=== PATIENT | female | born 1965 | race Caucasian/White ===

== ENCOUNTER 2018-01-20 03:16 | Day surgery (SDC) | payer BC ==
[2018-01-18 11:01] VITALS: BP 109/60
[~2018-01-20] VITALS: Ht 162.6 cm; Wt 55.4 kg
[2018-01-20] VITALS (10 sets, daily range): BP systolic 82–114; BP diastolic 43–64
[~2018-01-20 03:16] MED LIST: ACET500T73 PO; AMIO200T2 PO; AMOX1TAB63 PO; CARV6.25 PO; ENOX30DI SQ; FENT50AM IV; FURO-81 PO; LACTATED RINGERS 1,000 ML IV SCH; LORA-447 PO; METH125V12 IV; ONDA2VIA2 IV; PANT40TA3 PO; PANT40VI IV; POTA10TA10 PO; PRED20TA PO; SACU1TAB4 PO; SACU1TAB7 PO; WARF3TAB7 PO
[2018-01-20] MEDS ORDERED: NS 100ML 100 ML IV ONE ×2 (05:29→09:30)
[2018-01-20] MEDS ORDERED: MEFOXIN ONE ×2 (05:29→09:30)
[2018-01-20] MEDS ORDERED: LACTATED RINGERS 1,000 ML ONE (05:29)
[2018-01-20] MEDS ORDERED: VERSED ONE (06:43)
[2018-01-20] MEDS ORDERED: SUBLIMAZE ONE ×2 (06:43→09:12)
[2018-01-20] MEDS ORDERED: DIPRIVAN IV ONE (06:43)
--- NOTE | 2018-01-20 07:27 | PCM.EKG ---
[facility] Test Date: 2018-01-20 Test Time: 07:28:17 Pat Name: ALICE BARRIGA Department: Room: Gender: F Cranberry Sorter: KINZA : 1965 Requested By: LARRY TSANG Order Number: [id number] Reading MD: Measurements Intervals [place] Rate: 67 P: 70 ID: [id number] QRS: 100 QRSD: 144 T: 17 QT: 528 QTc: 557 Interpretive Statements Electronic ventricular pacemaker No previous ECG available for comparison Please click the below link to view image of tracing.
[2018-01-20] MEDS: SUBLIMAZE IV PRN ×2 (09:16→09:22)
[2018-01-20] MEDS ORDERED: NS 500ML 500 ML IV SCH (09:30)
[2018-01-20] MEDS ORDERED: LACTATED RINGERS 1,000 ML IV SCH (09:30)
[2018-01-20] MEDS ORDERED: NORCO 7.5MG PO ONE ×2 (09:55→10:00)
[2018-01-20] MEDS ORDERED: MEFOXIN IV SCH (10:05)
--- NOTE | 2018-01-20 10:59 | OPH ---
DATE OF SURGERY: PREOPERATIVE DIAGNOSES: History of abdominal pain and dyspepsia symptoms with vomiting. POSTOPERATIVE DIAGNOSES: 1. Gastritis. 2. Small hiatal hernia. SURGEON: Chau Goyal DO BOTTLE BLOWER: OR staff. ANESTHESIA: Total intravenous anesthesia by Damir Norris CRNA. PROCEDURES PERFORMED: Esophagogastroduodenoscopy with biopsy. SPECIMENS: Gastric mucosa to path. ESTIMATED BLOOD LOSS: 4 mL. COUNTS: At the completion of the case, the counts were correct per OR staff. DESCRIPTION OF PROCEDURE: The patient is a 52-year-old female known from previous evaluation. Prior to procedure, informed consent was obtained. At time of procedure, she was taken to the operative suite and placed in supine position. After time-out was completed, once her preop antibiotic is appropriately dosed, she was repositioned in left lateral recumbent position. After adequate sedation, esophagogastroduodenoscope was advanced transorally with pneumoinsufflation distally in second portion of duodenum. Once the duodenum was adequately visualized, camera was slowly withdrawn to facilitate visualization of the duodenal bulb and the pylorus. Her distal stomach does show some gastritis and biopsies are obtained. The retroflexion maneuver was performed. Cardia shows a small sliding type hiatal hernia. Camera was reduced. The fundus had been noted to be grossly normal. After the camera was reduced, stomach was decompressed. With good hemostasis noted, the camera was slowly withdrawn. Distal, mid and proximal esophagus were within normal limits. Vocal cords were visualized and within normal limits. Camera was removed. Procedure was discontinued. The patient tolerated these procedures well and there were no acute complications noted. Chau Goyal DO DR: HARMONY/gopal JOB# [id number] CC: Meera Roman MD
== END 2018-01-20 10:50 | disposition home or self-care (01) ==
LOC: SDC 03:16 → GIL 03:16
PROVIDERS: ATTEND Surgery
DX: K29.50 Unspecified chronic gastritis without bleeding (principal); I34.0 Nonrheumatic mitral (valve) insufficiency; I50.22 Chronic systolic (congestive) heart failure; I42.9 Cardiomyopathy, unspecified; I47.2 Ventricular tachycardia; I48.0 Paroxysmal atrial fibrillation; I31.9 Disease of pericardium, unspecified; I49.3 Ventricular premature depolarization; I05.9 Rheumatic mitral valve disease, unspecified; M19.032 Primary osteoarthritis, left wrist; K29.00 Acute gastritis without bleeding; B96.81 Helicobacter pylori [H. pylori] as the cause of diseases classified elsewhere; Z95.2 Presence of prosthetic heart valve; Z79.899 Other long term (current) drug therapy; Z90.710 Acquired absence of both cervix and uterus; Z98.890 Other specified postprocedural states; Z88.8 Allergy status to other drugs, medicaments and biological substances; Z79.01 Long term (current) use of anticoagulants; Z95.0 Presence of cardiac pacemaker; Z86.79 Personal history of other diseases of the circulatory system; Z80.3 Family history of malignant neoplasm of breast; Z82.49 Family history of ischemic heart disease and other diseases of the circulatory system
CPT/HCPCS: 43239; 88305; 88342; 93005; J2250; J3010 ×2; J3490; J7050 ×2; J7120; J0694

== ENCOUNTER → 2018-01-27 | Outpatient (CLI) | payer BC ==
[~2018-01-27] MED LIST changes: -LACTATED RINGERS 1,000 ML IV SCH
--- NOTE | 2018-01-27 13:12 | DIREP ---
PROCEDURE:NM GALLBLADDER SCAN/COLVIN COMPARISON:None. INDICATIONS:BILARY DYSCLINESIS TECHNIQUE:After obtaining the patient's consent, radiopharmaceutical was injected and images obtained sequentially for one hour. PHARMACEUTICAL(S):5.8 mCi Tc-99m ÁNGELA derivative, IV. 8 OZ Ensure Plus, PO FINDINGS: LIVER:Normal. BILIARY DUCTS:Normal. Visualized at 5 minutes. GALLBLADDER:Normal. Visualized at 55 minutes INTESTINE:Normal. Visualized at 20 minutes EJECTION FRACTION:Ejection fraction is calculated between 0.5 minutes and 59.5 minutes is 40%. There is initial accumulation of agent within the gallbladder until approximately 44 minutes and subsequent contraction with a resultant good ejection fraction. Normal ejection fraction is greater than 35%. CONCLUSION: Normal hepatobiliary study with normal gallbladder ejection fraction of 40%. Dictated by: Rogelio Canales MD on 01/27/2018 at 12:57 PM
== END | disposition home or self-care (01) ==
LOC: NM 09:02
PROVIDERS: ATTEND Specialist
DX: K83.8 Other specified diseases of biliary tract (principal)
CPT/HCPCS: 78227; A9537

== ENCOUNTER → 2018-03-07 | Outpatient (CLI) | payer BC ==
[2018-03-07 10:14] LABS: BILIRUBIN,URINE NEGATIVE (NEGATIVE); UROBILINOGEN,URINE NORMAL (NEGATIVE)
[2018-03-07 10:27] LABS: APPEARANCE,URINE CLOUDY (CLEAR); UA COLOR YELLOW (YELLOW)
== END | disposition home or self-care (01) ==
LOC: NPLAB 10:02
PROVIDERS: ATTEND Specialist
DX: N39.0 Urinary tract infection, site not specified (principal)
CPT/HCPCS: 81000; 87086

== ENCOUNTER → 2018-03-08 | Outpatient (CLI) | payer BC ==
[2018-03-08 10:05] LABS: HEMOGLOBIN 13.4 g/dL (12.0-15.0); MEAN CELL HGB 28.2 pg (26-34); MEAN CELL HGB CONCENTRATION 32.7 g/dL (33-37); MEAN CORP VOLUME 86.3 fL (78-100); MEAN PLATELET VOLUME 11.7 fL (7.8-11.0); RED CELL DISTRIBUTION WIDTH 14.6 % (11.5-14.5); WHITE BLOOD CELL 5.2 10^3/uL (4.5-11.0)
== END | disposition home or self-care (01) ==
LOC: LAB 09:52
PROVIDERS: ATTEND Specialist
DX: N39.0 Urinary tract infection, site not specified (principal)
CPT/HCPCS: 36415; 85027

== ENCOUNTER → 2018-05-31 | Outpatient (CLI) | payer BC ==
[~2018-05-31] MED LIST changes: +WARF3TAB52 PO; -WARF3TAB7 PO
== END | disposition home or self-care (01) ==
LOC: LAB 12:36
PROVIDERS: ATTEND Specialist
DX: E87.6 Hypokalemia (principal); I50.22 Chronic systolic (congestive) heart failure
CPT/HCPCS: 36415; 83735

== ENCOUNTER → 2018-06-03 | Outpatient (CLI) | payer BC ==
[2018-06-03 11:21] LABS: CALCIUM 8.5 mg/dL (8.4-10.5); CARBON DIOXIDE 23.8 mmol/L (20.0-32)
== END | disposition home or self-care (01) ==
LOC: LAB 10:53
PROVIDERS: ATTEND Specialist
DX: R79.89 Other specified abnormal findings of blood chemistry (principal)
CPT/HCPCS: 36415; 80048

== ENCOUNTER → 2018-06-28 | Outpatient (CLI) | payer BC ==
--- NOTE | 2018-06-28 15:27 | PCM.EKG ---
[facility] Test Date: 2018-06-28 Test Time: 15:31:17 Pat Name: ALICE BARRIGA Department: Room: Gender: F Material Crew Supervisor: NEYMAR : 1965 Requested By: LARRY TSANG Order Number: [id number] Reading MD: Measurements Intervals [place] Rate: 72 P: 45 TN: 216 QRS: 106 QRSD: 152 T: 36 QT: 508 QTc: 556 Interpretive Statements Electronic ventricular pacemaker Compared to ECG 01/20/2018 07:28:17 No significant changes Please click the below link to view image of tracing.
[2018-06-28 15:56] LABS: HEMOGLOBIN 10.2 g/dL (12.0-15.0); MEAN CELL HGB 28.2 pg (26-34); MEAN CELL HGB CONCENTRATION 32.6 g/dL (33-37); MEAN CORP VOLUME 86.5 fL (78-100); MEAN PLATELET VOLUME 10.6 fL (7.8-11.0); RED CELL DISTRIBUTION WIDTH 15.5 % (11.5-14.5); WHITE BLOOD CELL 4.5 10^3/uL (4.5-11.0)
[2018-06-28 15:59] LABS: ABG PCO2 29.6 mmHg (35.0-45.0); ABG PH 7.503 (7.350-7.450); BE(B) 0.3 mmol/L (-2.0-2.0); HCO3act 22.7 mmol/L (22.0-26.0); pO2 87.4 mmHg (75.0-100.0)
[2018-06-28 16:19] LABS: CALCIUM 8.6 mg/dL (8.4-10.5); CARBON DIOXIDE 27.5 mmol/L (20.0-32)
--- NOTE | 2018-06-28 16:30 | DIREP ---
PROCEDURE:CHEST 2 VIEWS COMPARISON:[facility], CR, XRAY CHEST 2 VWS, 07/19/2017, 07:40 AM. INDICATIONS:I50.22 Chronic systolic (congestive) heart failure FINDINGS: LUNGS/PLEURA:No significant pulmonary parenchymal abnormalities. No effusions. VASCULATURE:Normal. Unremarkable pulmonary vasculature. CARDIAC:Mild cardiomegaly. Post CABG changes with median sternotomy wires. Valvular replacement noted. MEDIASTINUM:Normal. No visible mass or adenopathy. BONES:Normal. No fracture or visible bony lesion. OTHER:Left subclavian pacer seen. CONCLUSION:Interval postsurgical changes. No acute cardiopulmonary disease. Dictated by: Jose Wilks M.D. on 06/28/2018 at 04:27 PM
--- NOTE | 2018-07-14 20:01 | ECHO ---
DATE OF SERVICE: 06/28/2018 A 52-year-old female. PRIMARY PHYSICIAN: Dr. Roman. FINDINGS: Shortness of breath, prosthetic mitral valve for bacterial endocarditis, assess valvular dysfunction and LV function, history of chronic systolic heart failure with 40% ejection fraction. Mitral valve shows a mitral prosthetic valve and there is a suggestion of an echogenic shadow on the prosthesis. It is not very clear and could be a possibility of thrombus versus vegetation. It is seen in 4 chamber view. MUNA would be important. There is no evidence of any mitral regurgitation noted. There may be very trivial mitral regurgitation, increased echogenicity, difficult results and difficulty in assessing the integrity of the mitral valve, but since there is no mitral regurgitation, very likely the valve is still intact, but thrombus versus vegetation cannot be fully excluded. Aorta is normal. There is aortic regurgitation with a pressure half time of 335 milliseconds consistent with 2+ aortic regurgitation, normal aortic size, mild gradient across the aorta, adequate aortic valve opening of 2.75 cm and there is a echogenic shadow on the aortic leaflet moving in a paradoxical manner. Vegetation of the aortic valve seems a distinct possibility and it is attached very likely to the anterior leaflet. No flail leaflet is documented. Tricuspid valve shows tricuspid regurgitation with velocity of 2.5 meters with a right ventricular systolic pressure of 35 mm. Right ventricular enlargement at 3.97 cm. Right atrium is enlarged in 4 chamber view to 5.2 cm. Left atrium appears to be normal. Left ventricle is normal in size, around 5.35 cm end-diastolic dimension, 3.6 cm end systolic dimension. No left ventricular hypertrophy, good wall contractility. Ejection fraction is 45%, improved from a year ago when she had mitral prosthesis with an ejection fraction in the mid 20% range. No pericardial effusion is documented. Hence picture consistent with mild LV systolic dysfunction, poor quality images on 4-chamber with probably intact integrity of the mitral valve with suggestion of vegetation. MUNA advisable. Aortic vegetation is a consideration, some sclerosis of the aorta. New finding of aortic regurgitation with a pressure half time of 335 milliseconds. Mild tricuspid regurgitation, mild pulmonary hypertension with a right ventricular systolic pressure of 35 mm and right ventricular enlargement, right atrial enlargement. Normal LV size, global hypokinesis, 45% ejection fraction, no pericardial effusion documented. Laxmichand Kamnani, MD DR: SUNNY/gopal JOB# [id number]
== END | disposition home or self-care (01) ==
LOC: LAB 15:17
PROVIDERS: ATTEND Specialist
DX: I50.22 Chronic systolic (congestive) heart failure (principal); I51.7 Cardiomegaly; Z95.1 Presence of aortocoronary bypass graft
CPT/HCPCS: 36415; 36600; 71046; 80053; 82803; 83880; 85027; 85610; 85651; 87040; 87077; 87186; 93005; 93307

== ENCOUNTER 2018-06-29 14:54 | Inpatient (IN) | payer BC ==
[2018-06-29] VITALS (14 sets, daily range): BP systolic 95–119; BP diastolic 46–68
[~2018-06-29] VITALS: Ht 162.6 cm; Wt 55.6 kg
--- NOTE | 2018-06-29 15:47 | NUR ---
PATIENT ARRIVED TO ICU AMBULATORY. PATIENT CHANGED INTO GOWN. HOOKED UP TO BEDSIDE MONITOR. VSS. INSERTED 20G IV TO RIGHT FA SECURED WITH TAPE AND TEGADERM DRESSING. ADMISSION ASSESSMENT COMPLETED. NOTIFIED DR. MCGOWAN OF ARRIVAL TO ICU. STATES HE IS ON THE WAY. BED IN LOW LOCKED POSITION. CALL LIGHT IN REACH. SIDE RAILS UP X2.
--- NOTE | 2018-06-29 16:00 | NUR ---
DR. MCGOWAN AT BEDSIDE ASSESSING PATIENT. NEW ORDERS RECEIVED TO TRANSFER TO [facility] [place] PATIENT REQUESTS TO BE TRANSFERRED BY PRIVATE VEHICLE. ORDERS RECEIVED TO GIVE PATIENT THE ANTIBIOTICS THAT ARE ORDERED AND DISCHARGE PATIENT WITH MEDICAL RECORDS.
--- NOTE | 2018-06-29 16:13 | NUR ---
SPOKE TO AGUSTINA FROM [facility] ACCEPTED PHYSICIAN WILL BE DR. GRANT.
--- NOTE | 2018-06-29 16:29 | NUR ---
AGUSTINA [facility] ON TELEPHONE ROOM NUMBER CONFIRMED [id number] NOTIFIED THAT PATIENT WILL BE RECEIVING ANTIBIOTICS AND THEN PATIENT IS GOING BY PRIVATE VEHICLE.
[2018-06-29] MEDS ORDERED: NS IV SCH ×2 (16:30)
[2018-06-29] MEDS ORDERED: VANCOMYCIN IV SCH (16:30)
[2018-06-29] MEDS ORDERED: TYLENOL PO PRN (16:30)
[2018-06-29] MEDS ORDERED: RIFAMPIN PO SCH (16:30)
[2018-06-29] MEDS ORDERED: GENTAMICIN SULFATE IV SCH (16:30)
--- NOTE | 2018-06-29 17:17 | HPH ---
ADMIT DATE: 06/29/2018 PRIMARY CARE PHYSICIAN: Meera Roman MD The patient is being admitted as an inpatient to ICU. 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 CHIEF COMPLAINT: Fever and shortness of breath and chills. HISTORY OF PRESENT ILLNESS: The patient is a 52-year-old female who a week ago started to have fever and chills. She denied any respiratory symptoms at this time. No procedures done recently. No sick contacts. She just did not feel well. She was having increasing shortness of breath as well throughout this. She was given Lasix, which she responded very well too and lab work was done. She continues to have fevers on and off and has some chills throughout the week and labs were done yesterday. She had positive blood cultures. She does have a history of mitral valve replacement for endocarditis 11 months ago and workup was done and it was felt that she had a prosthetic valve infection at this point. So, I was asked to admit her and to start prompt IV antibiotics on her and then sent her to a CT surgeon. PAST MEDICAL HISTORY: She had infective endocarditis in July 2017 and underwent a mitral valve replacement. SOCIAL HISTORY: She does not smoke. No illicit drugs, no alcohol. ALLERGIES: DEMEROL and MORPHINE. FAMILY HISTORY: Asked and noncontributory for this admission. MEDICATIONS: She is on include Coumadin, tramadol, Coreg. She was on Lasix, amiodarone, Protonix, Zofran. PHYSICAL EXAMINATION: GENERAL: She is in no acute distress. Awake, alert, oriented x 4. HEENT: Oropharynx is clear. NECK: Supple. HEART: I did hear a mitral valve murmur on her. LUNGS: Relatively clear bilaterally. ABDOMEN: Good bowel sounds, soft abdomen. EXTREMITIES: No pitting edema. I did not see any ulcers nodes. No Janeway spots. No splinter hemorrhages at this point. LABORATORY DATA: Labs were drawn. Her white count was 4500 yesterday, hemoglobin 10.2, platelet count of 140. Chemistry panel showed a sodium of 134, potassium 3.0, BUN 12, creatinine 0.88, albumin of 3. LFTs looked okay. Blood cultures were done that showed all bottles were positive for gram-positive cocci in singles pairs and chains. Chest x-ray was clear yesterday. ProBNP was elevated. 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 I have started her on vancomycin 50 mg/kg, rifampin 600 mg and gentamicin 1 mg/kg at starting dose on her in ICU. She was short of breath and had just received Lasix to improve her pulmonary edema, so I will not give her a 30 mL/kg bolus of fluids at this time since her valve is presumed affected and that is compromising her heart function, but I have talked to Dr. Figueroa from the [facility] and explained to him the situation and he has graciously accepted the transfer over to the [facility] in [place], so that he can evaluate her. We are giving her the IV antibiotics currently. Marianna Dennis MD DR: LILIAM/gopal JOB# [id number]
--- NOTE | 2018-06-29 18:44 | NUR ---
REPORTED OFF TO ONCOMING SHIFT. RELINQUISHED CARE.
[2018-06-29] MEDS ORDERED: COREG ONE (19:19)
[2018-06-29] MEDS ORDERED: ENTRESTO 49 MG-51 MG TABLET PO ONE ×2 (19:19→19:27)
[2018-06-29] MEDS ORDERED: ENTRESTO 24 MG-26 MG TABLET PO ONE (19:20)
[2018-06-29] MEDS ORDERED: ENTRESTO 49 MG-51 MG TABLET PO SCH (19:30)
[2018-06-29] MEDS ORDERED: COREG PO SCH (19:30)
--- NOTE | 2018-06-29 19:35 | NUR ---
SBAR REPORT CALLED TO THE [facility] TO MEDHAT JEFFRIES.
--- NOTE | 2018-06-29 19:45 | NUR ---
PATIENT TRANSFERRED TO [facility] VIA POV WITH SPOUSE. IV SALINE LOCKED. PATIENT ESCORTED OUT OF BUILDING. TRANSFER PACKET WITH CHART AND DISKS IN PT POSSESSION. DENIES QUESTIONS OR FURTHER NEEDS.
--- NOTE | 2018-06-30 01:06 | DSH ---
DATE OF DISCHARGE: 06/29/2018 DATE OF TRANSFER: [place] [facility] [place]. 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 HOSPITAL COURSE: The patient is a 52-year-old female who came in with a week long history of fever and chills, 4/4 bottles were positive for gram-positive cocci in chains and pairs and she does have an elevated sed rate with mitral valve murmur. I have started her on vancomycin, rifampin and gentamicin and Dr. Figueroa, the CT surgeon at the [facility], has graciously accepted the transfer, so that he can evaluate her prosthetic valve, so she is getting the IV antibiotics currently and she will be transferred over to the [facility] [place]. Figueroa. Marianna Dennis MD DR: LILIAM/gopal JOB# [id number]
== END 2018-06-29 19:45 | disposition short-term general hospital (02) | DRG 314 ==
LOC: ICU 15:40
PROVIDERS: ADMIT Pediatrics; ATTEND Pediatrics
DX: T82.6XXA Infection and inflammatory reaction due to cardiac valve prosthesis, initial encounter (principal); A41.9 Sepsis, unspecified organism; I50.21 Acute systolic (congestive) heart failure; I33.0 Acute and subacute infective endocarditis; I34.0 Nonrheumatic mitral (valve) insufficiency; Y83.1 Surgical operation with implant of artificial internal device as the cause of abnormal reaction of the patient, or of later complication, without mention of misadventure at the time of the procedure; Z88.5 Allergy status to narcotic agent; Y92.89 Other specified places as the place of occurrence of the external cause
CPT/HCPCS: J1580; J7050; J3370

== ENCOUNTER 2018-08-08 15:31 | Inpatient (IN) | payer BC ==
[~2018-08-08] VITALS: Ht 162.6 cm; Wt 47.7 kg
[2018-08-08] VITALS (24 sets, daily range): BP systolic 113–148; BP diastolic 64–97
[~2018-08-08 15:31] MED LIST changes: -AMIO200T2 PO; +AMIO200T4 PO
[2018-08-08] MEDS ORDERED: DOBUTREX IV ONE (16:13)
[2018-08-08] MEDS ORDERED: D5W IV ONE (16:13)
[2018-08-08 16:15] LABS: ABG PH 7.447 (7.350-7.450); HCO3act 17.5 mmol/L (22.0-26.0); pO2 81.6 mmHg (75.0-100.0)
[2018-08-08] MEDS ORDERED: LANOXIN IV STA (16:16)
[2018-08-08] MEDS ORDERED: LASIX IV STA (16:16)
[2018-08-08] MEDS ORDERED: ATIVAN PO STA (16:16)
--- NOTE | 2018-08-08 16:20 | NUR ---
PT ARRIVED ON UNIT DIRECT ADMIT FROM DR TSANG OFFICE. PT IN NO APPARENT DISTRESS THOUGH BREATHING SOMEWHAT LABORED. DENIED PAIN AT THIS TIME. PICC LINE IN LUE. DR TSANG ORDERS WITH PT.
[2018-08-08] MEDS: ROCEPHIN 2,000 MG in NS 100ML 100 ML IV SCH (16:30)
[2018-08-08] MEDS ORDERED: COUMADIN PO ONE (16:30)
--- NOTE | 2018-08-08 16:53 | DIREP ---
PROCEDURE:CHEST 2 VIEWS COMPARISON:[facility], CR, XRAY CHEST 2 VWS, 06/28/2018, 03:59 PM. INDICATIONS:chf FINDINGS: LUNGS/PLEURA:Small bilateral pleural effusions, right greater than left, and bibasilar atelectasis. CARDIAC:Mild cardiomegaly, previous mitral and interval aortic valvuloplasty, right subclavian pacer, epicardial lead, and mildly prominent pulmonary vascularity. MEDIASTINUM:Suprasternal surgical clips. BONES:Normal OTHER:No additional findings. CONCLUSION:CHF or volume overload. Dictated by: Charlette Quinn MD on 08/08/2018 at 04:46 PM
--- NOTE | 2018-08-08 17:00 | NUR ---
DOBUTAMINE 250 MG/250 ML INFUSING VIA LUE PICC AT 10 CC/HR PER DR SHARAN PITTS.
[2018-08-08] MEDS ORDERED: ROCEPHIN ONE (17:08)
[2018-08-08] MEDS ORDERED: NS 100ML 100 ML IV ONE (17:09)
--- NOTE | 2018-08-08 17:30 | NUR ---
ROCEPHIN 2 GM IV INFUSING VIA 22 GAUGE IV IN R HAND PER DR TSANG ORDER.
--- NOTE | 2018-08-08 17:58 | NUR ---
PT RECEIVED HOME ANTIBIOTICS PER DR TSANG ORDER UNISYN 3 GM/100 ML IV VIA 22 GAUGE IV IN R HAND.
[2018-08-08] MEDS ORDERED: COUMADIN ONE (18:07)
--- NOTE | 2018-08-08 19:00 | NUR ---
REPORT TO 7 PM SHIFT PT IN NO APPARENT DISTRESS, CALL LIGHT IN REACH.
[2018-08-08] MEDS ORDERED: SUBLIMAZE ONE (20:42)
[2018-08-08] MEDS: SUBLIMAZE IV PRN (20:50)
[2018-08-08] MEDS: ENTRESTO 24 MG-26 MG TABLET PO SCH (20:57)
[2018-08-08] MEDS: COREG PO SCH (20:58)
[2018-08-09] VITALS (44 sets, daily range): BP systolic 71–147; BP diastolic 50–98
[2018-08-09] MEDS ORDERED: NS IV SCH ×2
[2018-08-09] MEDS ORDERED: UNASYN IV SCH ×2
--- NOTE | 2018-08-09 00:10 | NUR ---
AMPICILLIN AMPICILLIN/SULB 3GM/NS 100ML GIVEN TO PT VIA IV AT 200 ML/HR. MED BROUGHT FROM PATIENTS HOME. AWARE THAT PHARMACY DOES NOT HAVE THIS MEDICATION AND HAS INSTRUCTED Addendum: 08/09/18 at 0355 by Daria Trejo RN- CCL MERVIN PT BE ISSUED MEDICATION THAT IS FROM HOME
--- NOTE | 2018-08-09 00:12 | NUR ---
REPORT REPORT RECEIVED, ASSUMED CARE OF PT. PT HAS DOBUTREX AT 3.472 MCG/KG/MIN TO LEFT SINGLE LUMEN PICC LINE. PT A&O, DENIES NEEDS AT THIS TIME. CALL LIGHT WITHIN REACH. Addendum: 08/09/18 at 0355 by Daria Trejo RN- CCL MERVIN WRONG TIME. TIME [id number]
[2018-08-09] MEDS: SUBLIMAZE IV PRN ×6 (00:18→16:04)
--- NOTE | 2018-08-09 03:55 | NUR ---
STATUS PT LYING IN BED ON LEFT SIDE. EYES CLOSED. EVEN NON-LABORED BREATHING ASSESSED. CALL LIGHT WITHIN REACH. NO NEEDS DETERMINED AT THIS TIME.
[2018-08-09] MEDS ORDERED: ROCEPHIN ONE (04:14)
[2018-08-09] MEDS ORDERED: NS 100ML 100 ML IV ONE (04:16)
[2018-08-09] MEDS: ROCEPHIN 2,000 MG in NS 100ML 100 ML IV SCH ×2 (04:28→16:30)
[2018-08-09 05:10] LABS: BASOPHIL # 0.1 10^3/uL (0.0-0.1); BASOPHIL % 1.1 % (0.0-0.2); EOSINOPHIL # 0.8 10^3/uL (0.0-0.2); EOSINOPHIL % 12.2 % (0.0-5.0); HEMOGLOBIN 11.1 g/dL (12.0-15.0); LYMPHOCYTES # 1.4 10^3/uL (1.0-4.8); LYMPHOCYTES % 21.5 % (24.0-44.0); MEAN CELL HGB CONCENTRATION 32.4 g/dL (33-37); MEAN CORP VOLUME 83.5 fL (78-100); MEAN PLATELET VOLUME 10.7 fL (7.8-11.0); MONOCYTES # 0.8 10^3/uL (0.3-0.8); NEUTROPHIL # 3.4 10^3/uL (1.8-7.7); RED CELL DISTRIBUTION WIDTH 14.9 % (11.5-14.5); WHITE BLOOD CELL 6.3 10^3/uL (4.5-11.0)
[2018-08-09 05:37] LABS: CALCIUM 8.2 mg/dL (8.4-10.5); CARBON DIOXIDE 27.3 mmol/L (20.0-32)
--- NOTE | 2018-08-09 05:55 | NUR ---
AMPICILLIN 3MG/100MLNS GIVEN TO PT VIA IV AT 200 ML/HR. MD AWARE THAT PT IS TAKING MEDICATION THAT CAME FROM HOME.
--- NOTE | 2018-08-09 07:00 | NUR ---
RECEIVED REPORT ASSUMED CARE, NO APPARENT DISTRESS NOTED, BEDSIDE MONITOR READING PACED RHYTHM 90'S. C/O SOME PAIN IN UPPER BACK, IMPROVED AFTER PAIN MEDICATION FROM PREVIOUS SHIFT, STATES WORK OF BREATHING IMPROVED TODAY. LUNG SOUNDS IMPROVED TODAY, DENIED NEEDS, CALL LIGHT IN REACH.
[2018-08-09] MEDS ORDERED: DOBUTREX IV SCH (09:00)
[2018-08-09] MEDS ORDERED: D5W IV SCH (09:00)
[2018-08-09] MEDS ORDERED: LASIX IV SCH (09:00)
[2018-08-09] MEDS ORDERED: PROTONIX PO SCH (09:00)
[2018-08-09] MEDS ORDERED: KLOR-CON 10 PO SCH (09:00)
[2018-08-09] MEDS ORDERED: ALDACTONE PO SCH (09:00)
[2018-08-09] MEDS ORDERED: ULTRAM ONE (10:07)
[2018-08-09] MEDS: ULTRAM PO PRN ×2 (10:30→15:07)
--- NOTE | 2018-08-09 10:30 | NUR ---
VERBAL ORDER DR TSANG ULTRAM 50 MG PO Q 4 PRN PAIN. PT C/O BURNING PAIN FROM IN THROUGH CHEST AND UPPER BACK. SEE JAN. PT TO CT FOR CTA OF CHEST W/CONTRAST PER DR TSANG ORDER.
[2018-08-09] MEDS: ENTRESTO 24 MG-26 MG TABLET PO SCH (10:40)
--- NOTE | 2018-08-09 10:40 | DIREP ---
PROCEDURE:CT CHEST WITH CONTRAST COMPARISON:[facility], CR, XRAY CHEST 2 VWS, 06/28/2018, 03:59 PM. [facility], CR, XRAY CHEST 2 VWS, 08/08/2018, 04:03 PM. INDICATIONS:POST AORTIC VALVE TECHNIQUE:Helical CT images of the chest were obtained following the administration of IV contrast material. Axial, sagittal, and coronal images are provided. FINDINGS: LUNGS/PLEURA: Small right and trace left pleural effusions. Consolidation within the inferior aspects of the right middle lobe and right lower lobe is likely secondary to compressive atelectasis. Underlying pneumonia cannot be entirely excluded. Mild subsegmental atelectasis in the right middle lobe, posterior left upper lobe, and lingula. Mild dependent atelectasis in the posterior lower lobes. No suspicious pulmonary nodule. No pneumothorax. MEDIASTINUM/MARITZA: Mildly prominent right paratracheal and precarinal lymph nodes, which are likely reactive in nature. An index precarinal node measures 1.2 cm short axis (image 22, series 2). Mild anterior mediastinal fat stranding is likely related to recent surgery. Left upper extremity PICC is present with its tip in the distal SVC. CARDIAC: Mild cardiomegaly. Postoperative changes of aortic valvular and mitral annular replacement. No pericardial effusion. A 4 lead left subclavian pacemaker is present with lead tips in the right atrium and right ventricle. Two epicardial pacemaking leads overlie the anterior and inferior aspects of the right ventricle. THORACIC AORTA: Mild smooth undulation of the anterior wall of the ascending thoracic aorta (image 27, series 2 and image 23, series 8034), which is likely related to prior surgery. No aneurysm or dissection. CHEST WALL: Right chest wall pacemaker generator. Otherwise unremarkable. No axillary adenopathy. LIMITED ABDOMEN: Visualized portions the upper abdomen are unremarkable. BONES: Healing median sternotomy. No evidence of sternal dehiscence. Mild thoracic spondylosis. No acute abnormality. OTHER: Negative. CONCLUSION: 1. Mild cardiomegaly with postoperative changes of aortic and mitral valve replacement and a multi lead right subclavian pacemaker. No pericardial effusion. 2. Small right and trace left pleural effusions. 3. Consolidation within the inferior aspects of the right middle lobe and right lower lobe, which is likely secondary to compressive atelectasis. Underlying pneumonia cannot be entirely excluded. Additional mild scattered atelectasis is seen right middle lobe, left upper lobe, lingula, and posterior left lower lobe. 4. Left upper extremity PICC with its tip in the distal SVC. 5. Additional findings, as above. Dictated by: Sushant Decker MD on 08/09/2018 at 10:23 AM
[2018-08-09] MEDS: COREG PO SCH (10:42)
--- NOTE | 2018-08-09 12:00 | NUR ---
UNISYN 3 GM/100 ML IV ADMINISTERED FROM PT HOME MEDICATIONS PER DR TSANG ORDER.
[2018-08-09] MEDS ORDERED: TORS20TA2 PO (12:27)
[2018-08-09] MEDS ORDERED: SACU1TAB PO (12:27)
[2018-08-09] MEDS ORDERED: PANT40TA3 PO (12:27)
[2018-08-09] MEDS ORDERED: TRAM50TA PO (12:27)
[2018-08-09] MEDS ORDERED: SPIR25TA PO (12:27)
--- NOTE | 2018-08-09 13:00 | NUR ---
PICC LINE DRESSING CHANGED USING STERILE TECHNIQUE, PER PROTOCOL.
[2018-08-09] MEDS ORDERED: DIGO125T81 PO (13:33)
--- NOTE | 2018-08-09 15:42 | HPH ---
ADMIT DATE: 08/08/2018 CHIEF COMPLAINT: Marked orthopnea, paroxysmal nocturnal dyspnea and dyspnea on exertion, constant chest pain, post open heart surgery with replacement of mitral and aortic valve with Commando procedure done by Dr. Figueroa in [facility] [place] in [place] 1 month ago. HISTORY OF PRESENT ILLNESS: The patient is a 52-year-old white female who over a year ago underwent mitral valve replacement for acute bacterial endocarditis, Staphylococcus aureus by and she had total dehiscence of the valve with severe mitral regurgitation and had a poor LV function requiring pressor support, post-valve replacement and was in congestive heart failure and had AV sequential pacer also at that time and over 1 year period, she had general malaise, weakness, lethargy. About a month ago, she had ran fever and had generalized constitutional symptoms with shortness of breath and echo performed in my absence had shown a vegetation on the aortic leaflet and on the prosthetic mitral leaflet and she was sent to Dr. Figueroa in [place] and she underwent Commando procedure with replacement of the mitral valve, aortic valve and repair of the intraventricular septum and the old valve was removed and antibiotics were initiated and she also had a new pacemaker and the old pacer leads were all extracted and one month post recent surgery and now she came with orthopnea, PND, and dyspnea on exertion and was found to be in gross heart failure. Echo done today on 08/08/2018 showed severe global hypokinesis with 20-25% ejection fraction and she had to stop her Entresto; hence, admitted in the hospital for IV Dobutrex infusion along with optimization of CHF therapy. ALLERGIES: DEMEROL, MORPHINE. MEDICATIONS: She is on Zofran 8 mg 1 tablet q. 4 hours p.r.n. nausea. She is on Lasix 40 mg once a day, Coumadin is 9 mg 3 days a week and 12 mg 4 days a week and tramadol 50 mg 2-3 times a day, Coreg 6.25 mg twice a day. She is not taking Entresto, not on Reglan, potassium 10 mEq once a day. PAST MEDICAL HISTORY: History of acute bacterial endocarditis, which was initially a year ago was Staph aureus and now when she had an infection of the mitral and the aortic valve, mitral valve was a prosthetic valve. She had Enterococcus faecalis, which was a Gram-negative and she underwent Commando procedure with repair of both the valves and she had done well except her LV function is very poor and has got dilated cardiomyopathy, nonsustained ventricular tachycardia in the past, paroxysmal atrial fibrillation, PVCs, chronic pain. She now has acute on chronic systolic heart failure, gallbladder sludge in the past and she was a candidate for upgrade to BiV ICD, but BiV ICD was not done at this time. PAST SURGICAL HISTORY: Hysterectomy in 2013, mitral valve prosthesis in 07/2017 and pacer on 07/28/[address] Irizarry, recent one month ago underwent mitral valve prosthesis through redo operation along with aortic valve replacement and extraction of the old device and placement of the new pacer. SOCIAL HISTORY: Nonsmoker, no ethanol use. FAMILY HISTORY: Father had an PA. Sister had breast cancer. PHYSICAL EXAMINATION: GENERAL: She is leant and asthenically built, alert, awake, oriented. VITAL SIGNS: Blood pressure 110/70, saturation 97%, respirations 18, pulse was 90, 5 feet 4 inches and 121 pounds and BMI of 20.8. HEAD AND NECK: Unremarkable. JVD up the angle of jaw, significant orthopnea noted. No definite carotid bruits. CHEST: Thin chest wall. Fine rales at the bases. CARDIOVASCULAR: Clicks on mitral and aortic prosthetic valve were well heard. No murmurs were audible. ABDOMEN: Soft, nontender, no organomegaly was elicited. EXTREMITIES: Distal pulses fairly well felt, may be mild dependent edema. NEUROLOGIC: No lateralizing motor deficit is documented. LABORATORY DATA: ____ her labs are fairly acceptable. Her INR was 6, hemoglobin 11.1. Chemistry was acceptable. BUN 19, creatinine 1.03. ProBNP was markedly elevated over 30,000 and INR was 6.8. IMPRESSION: [id number] systolic heart failure, post-prosthetic mitral and aortic valve and gram-negative bacterial endocarditis, on Unasyn 3 grams IV q. 6 hours along with Rocephin 2 grams IV q. 12 hours, on anticoagulation, post-pacer. PLAN: At this time, admit the patient, start IV Dobutrex for her low ejection fraction along with reinitiation of Entresto and carvedilol, spironolactone and optimize cardiac therapy. Meera Roman MD DR: SUNNY/gopal JOB# [id number]
--- NOTE | 2018-08-09 16:30 | NUR ---
PT DISCHARGED HOME IV SITE REMOVED FROM R HAND 22 GAUGE, TIP INTACT, PRESSURE AND DRESSING APPLIED. PICC LINE FLUSHED WITH 10 CC NS. PT TEACHING ON NEW AND CONTINUED HOME MEDICATIONS, EXIT CARE HANDOUT GIVEN TO PATIENT INCLUDING INFORMATION ON DISEASE PROCESS. PT TRANSFERRED VIA WHEELCHAIR TO PRIVATE VEHICLE ACCOMPANIED BY STAFF AND FRIEND.
--- NOTE | 2018-08-09 17:23 | NUR ---
DOBUTAMINE 250 MG/250 ML INFUSING VIA LUE PICC AT 10 CC/HR PER DR TSANG ORDER. Addendum: 08/09/18 at 1803 by Lexus Sultana RN - TRAY PACKER ERROR, WRONG TIME.
--- NOTE | 2018-08-09 19:10 | DSH ---
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 Please refer to my history and physical to the point of my impression. HOSPITAL COURSE: The patient is a 52-year-old white female who had acute bacterial endocarditis with Staphylococcus aureus over a year ago, underwent mitral valve replacement and had an AV sequential pacer and subsequently she did well for a while and started having generalized constitutional symptoms with fever and lethargy and weakness and shortness of breath and was noted to have a new vegetation on the aortic and mitral valve over a month ago, went to [facility] and had replacement of both the valve, which included prosthetic mitral valve and extraction of the old pacer device and the new device was placed and she has been on Unasyn 3 grams q. 6 hours along with Rocephin 2 grams q. 12 hours through a PICC line and she came with acute shortness of breath, orthopnea, dyspnea on exertion, was noted to be in acute on chronic systolic heart failure with 20% ejection fraction with LV dilatation on echo. Prosthetic valve integrity of both mitral and aortic valve are intact and she was admitted in the hospital, IV Dobutrex given. Aggressive diuresis achieved and she did well and at the present time CT of the chest was done to make sure there is no aortic tear because of constant pain and both valves seem to be in good position and there was some atelectasis, but intact integrity of the aorta was noted. She was dismissed on Protonix 40 mg once a day, Entresto one tablet twice a day, Aldactone 12.5 mg once a day, torsemide 20 mg once a day, Ultram 50 mg q. 4 hours p.r.n. pain, Tylenol for pain, Coreg 6.25 mg twice a day, potassium 10 mEq 2 tablets daily. Amiodarone was stopped. Lasix was stopped and will be also on Lanoxin 0.125 mg daily. She is on 2 antibiotics and she is on Coumadin 9 mg p.o. daily 5 days a week and 12 mg p.o. 2 days a week and will do protime next week and see me back in 2 weeks. Meera Roman MD DR: Rossy JOB# [id number]
== END 2018-08-09 16:20 | disposition home or self-care (01) | DRG 291 ==
LOC: ICU 15:31
PROVIDERS: ADMIT Specialist; ATTEND Specialist
DX: I50.23 Acute on chronic systolic (congestive) heart failure (principal); I33.0 Acute and subacute infective endocarditis; I42.0 Dilated cardiomyopathy; J98.11 Atelectasis; E44.1 Mild protein-calorie malnutrition; Z68.1 Body mass index [BMI] 19.9 or less, adult; G89.18 Other acute postprocedural pain; I48.0 Paroxysmal atrial fibrillation; I34.0 Nonrheumatic mitral (valve) insufficiency; B96.89 Other specified bacterial agents as the cause of diseases classified elsewhere; Z90.710 Acquired absence of both cervix and uterus; Z95.0 Presence of cardiac pacemaker; Z95.2 Presence of prosthetic heart valve; Z88.0 Allergy status to penicillin; Z88.5 Allergy status to narcotic agent; Z82.49 Family history of ischemic heart disease and other diseases of the circulatory system; Z80.3 Family history of malignant neoplasm of breast
CPT/HCPCS: 36415; 36600; 71046; 71260; 80053; 82803; 83880; 84484; 85025; 85610; J0696; J1160; J1250; J1940; J3010; J3480; J7050; Q9965

== ENCOUNTER 2018-08-14 04:33 | Emergency (ER) | payer BC ==
[~2018-08-14] VITALS: Ht 162.6 cm; Wt 52.2 kg
[~2018-08-14 04:33] MED LIST changes: +DIGO125T81 PO; +SACU1TAB PO; +SPIR25TA PO; +TORS20TA2 PO; +TRAM50TA PO
[2018-08-14] MEDS ORDERED: SUBLIMAZE IV STA (04:48)
[2018-08-14] MEDS ORDERED: ZOFRAN IV STA (04:48)
--- NOTE | 2018-08-14 04:56 | ER.PDOC ---
General Chief Complaint: Abdomen Pain Stated Complaint: BACK AND ABD PAIN Time seen by MD: 04:45 Source: patient Exam Limitations: no limitations History of Present Illness Initial Comments Pt started with intense abdominal epigastric pain, with radiation to her back at about 12:30 tonight, nausea vomiting twice. Timing/Duration: 4-6 hours Severity/Quality: severe, burning, cramping Radiation: back Associated Symptoms: back pain, nausea/vomiting Exacerbated by: nothing Relieved By: nothing Allergies: Coded Allergies: meperidine (Verified Allergy, Intermediate, HIVES, 01/18/18) morphine (Verified Allergy, Intermediate, VOMITTING, 01/18/18) Home Meds Active Scripts Digoxin (LANOXIN) 125 Mcg Tablet, 125 MCG PO DAILY24 for 30 Days, #30 Prov:LARRY TSANG MD 08/09/18 Torsemide (TORSEMIDE) 20 Mg Tablet, 20 MG PO DAILY24 for 30 Days Prov:LARRY TSANG MD 08/09/18 Pantoprazole Sodium (PROTONIX) 40 Mg Tablet.dr, 40 MG PO DAILY for 30 Days Prov:LARRY TSANG MD 08/09/18 Tramadol Hcl (TRAMADOL HCL) 50 Mg Tablet, 50 MG PO Q4HR PRN for PAIN for 30 Days , TABLET Prov:LARRY TSANG MD 08/09/18 Spironolactone 25MG (ALDACTONE 25MG) 25 Mg Tablet, 12.5 MG PO DAILY for 30 Days , TABLET Prov:LARRY TSANG MD 08/09/18 Sacubitril/Valsartan (Entresto 24 mg-26 mg Tablet) 1 Each Tablet, 1 EACH PO BID for 30 Days, TABLET Prov:LARRY TSANG MD 08/09/18 Reported Medications Warfarin Sodium (COUMADIN) 10 Mg Tablet, 1 TAB PO DAILY, #30 TAB 5 Refills 08/14/18 Potassium Chloride (POTASSIUM CHLORIDE) 10 Meq Tablet.er, 2 TAB PO DAILY PRN for SWELLING, #90 TAB 1 Refill TAKE WITH LASIX 01/18/18 Carvedilol 6.25MG (COREG 6.25MG) 6.25 Mg Tablet, 1 TAB PO BID, #180 TAB 1 Refill 01/18/18 Discontinued Reported Medications Furosemide (LASIX) 20 Mg Tablet, 1 TAB PO DAILY PRN for SWELLING, #90 TAB 1 Refill TAKE WITH POTASSIUM 01/18/18 Amiodarone Hcl (CORDARONE) 200 Mg Tablet, 0.5 TAB PO DAILY, #90 TAB 1 Refill 01/18/18 Sacubitril/Valsartan (Entresto 97 mg-103 mg Tablet) 1 Each Tablet, 1 EACH PO HS , TABLET 01/18/18 Sacubitril/Valsartan (Entresto 49 mg-51 mg Tablet) 1 Each Tablet, 1 EACH PO DAILY24, TABLET 01/18/18 Discontinued Scripts Acetaminophen (ACETAMINOPHEN) 500 Mg Tablet, 1000 MG PO Q6HR PRN for PAIN for 10 Days, TABLET Prov:LARRY TSANG MD 07/19/17 Vital Signs First Vital Signs Date Time Temp Pulse Resp B/P (MAP) Pulse Ox O2 Delivery O2 Flow Rate FiO2 08/09/18 10:42 86 08/14/18 04:43 18 99 Room Air Last Vital Signs Date Time Temp Pulse Resp B/P (MAP) Pulse Ox O2 Delivery O2 Flow Rate FiO2 08/14/18 04:43 88 18 99 Room Air Past Medical History Medical History: cardiac problems, congestive heart failure Surgical History: cardiac cath, hysterectomy LMP (females 10-50): hysterectomy Social History Smoking: non-smoker Alcohol Use: none Drug Use: none Constitutional: no symptoms reported EENTM: no symptoms reported Respiratory: no symptoms reported Cardiovascular: no symptoms reported Gastrointestinal: see HPI Genitourinary: no symptoms reported Musculoskeletal: no symptoms reported Skin: no symptoms reported Psychiatric/Neurological: no symptoms reported Endocrine: no symptoms reported Hematologic/Lymphatic: no symptoms reported Physical Exam General Appearance: Mild Distress HEENT: PERRL/EOMI, Normal ENT Inspection, TMs Normal, Pharynx Normal Neck: Non-Tender, Full Range of Motion, Supple, Normal Inspection Respiratory: chest non-tender, lungs clear, normal breath sounds, no respiratory distress, no accessory muscle use Cardiovascular: Normal Peripheral Pulses, Regular Rate, Rhythm, Systolic Murmur (/6), Other Gastrointestinal: No Organomegaly, No Pulsatile Mass, Tenderness (epigastrium) Back: Normal Inspection, No CVA Tenderness, No Vertebral Tenderness Extremities: Normal Range of Motion, Non-Tender, Normal Inspection, No Pedal Edema, No Calf Tenderness, Normal Capillary Refill, Pelvis Stable Neurologic/Psychiatric: brick setter II-XII NML as Tested, No Motor/Sensory Deficits, Alert, Normal Mood/Affect, Oriented x 3 Skin: Normal Color, Warm/Dry Lymphatic: No Adenopathy Course Sepsis Screening Results: Posi: NEGATIVE Sepsis Qualifier/Stage: NO DEFINITE RISK Vitals & review Data Vital Sign - Last 24 Hours 08/14/18 04:43 Pulse 88 Resp 18 Pulse Ox 99 O2 Delivery Room Air Departure Time of Disposition: 06:28 Disposition: 01 HOME, SELF-CARE Impression: Primary Impression: Biliary colic Additional Impression: Biliary dyskinesia Condition: Stable Patient Instructions: Abdominal Pain Referrals: LARRY TSANG MD (PCP) PRIMARY CARE PROVIDER Duration or Time Spent with Pa: 25 Problem Qualifiers FRANCESCO LEE MD Aug 14, 2018 04:56
[2018-08-14] MEDS ORDERED: ZOFRAN ONE (04:57)
[2018-08-14] MEDS ORDERED: SUBLIMAZE ONE (04:57)
--- NOTE | 2018-08-14 05:06 | NUR ---
TO XRAY PATIENT TO XRAY WITH GILBERT,RAD
[2018-08-14 05:09] LABS: BASOPHIL # 0.1 10^3/uL (0.0-0.1); BASOPHIL % 0.8 % (0.0-0.2); EOSINOPHIL # 0.5 10^3/uL (0.0-0.2); HEMOGLOBIN 11.7 g/dL (12.0-15.0); LYMPHOCYTES # 1.4 10^3/uL (1.0-4.8); LYMPHOCYTES % 18.2 % (24.0-44.0); MEAN CELL HGB 26.2 pg (26-34); MEAN CELL HGB CONCENTRATION 31.6 g/dL (33-37); MEAN PLATELET VOLUME 10.6 fL (7.8-11.0); MONOCYTES # 0.7 10^3/uL (0.3-0.8); MONOCYTES % 8.8 % (5.0-12.0); NEUTROPHIL # 5.2 10^3/uL (1.8-7.7); NEUTROPHILS % 66.1 % (41.0-85.0); RED CELL DISTRIBUTION WIDTH 15.1 % (11.5-14.5); WHITE BLOOD CELL 7.8 10^3/uL (4.5-11.0)
--- NOTE | 2018-08-14 05:09 | NUR ---
BACK FROM XRAY PATIENT BACK FROM XRAY, SPOUSE AT BEDSIDE. NO NEEDS VOICED BY PATIENT OR SPOUSE.
[2018-08-14] MEDS ORDERED: DILAUDID IV STA (05:17)
[2018-08-14] MEDS ORDERED: DILAUDID ONE (05:18)
--- NOTE | 2018-08-14 05:18 | NUR ---
EKG CALLED RT CHUN FOR EKG AT THIS TIME.
--- NOTE | 2018-08-14 05:19 | NUR ---
PACEMAKER IN RIGHT UPPER CHEST.
--- NOTE | 2018-08-14 05:19 | NUR ---
PICC LINE IN LEFT UPPER ARM.
[2018-08-14] MEDS ORDERED: PHENERGAN ONE (05:21)
--- NOTE | 2018-08-14 05:25 | NUR ---
RT CHUN, RT IN PT ROOM FOR EKG AT THIS TIME.
--- NOTE | 2018-08-14 05:27 | DIREP ---
PROCEDURE:CHEST 2 VIEWS COMPARISON:[facility], CR, XRAY CHEST 2 VWS, 08/08/2018, 04:03 PM. INDICATIONS:epigastric pain FINDINGS: LUNGS/PLEURA:Clearing of bilateral pleural effusions. There are subsegmental atelectatic changes in the right lung base. VASCULATURE:Normal. Unremarkable pulmonary vasculature. CARDIAC:Right-sided dual-chamber pacemaker in place. Previous mitral and aortic valve surgery. MEDIASTINUM:Left PICC line in place with tip in the superior vena cava. BONES:Normal. No fracture or visible bony lesion. OTHER:Negative. CONCLUSION:Clearing of bilateral pleural effusions. There are subsegmental atelectatic changes at the right lung base Dictated by: John Persaud M.D. on 08/14/2018 at 05:24 AM
[2018-08-14 05:28] LABS: CALCIUM 9.2 mg/dL (8.4-10.5); CARBON DIOXIDE 27.5 mmol/L (20.0-32)
[2018-08-14] MEDS ORDERED: WARF10TA PO (05:30)
[2018-08-14] MEDS ORDERED: PHENERGAN IV PRN (05:30)
[2018-08-14 05:35] VITALS: BP 138/99
--- NOTE | 2018-08-14 05:39 | PCM.EKG ---
[facility] Test Date: 2018-08-14 Test Time: 05:42:18 Pat Name: ALICE BARRIGA Department: [id number] Room: Gender: F Slubber Hand: ATIYA : 1965 Requested By: FRANCESCO LEE Order Number: [id number] Reading MD: Manish Irizarry Measurements Intervals [place] Rate: 87 P: 84 MN: 190 QRS: -61 QRSD: 172 T: 108 QT: 482 QTc: 580 Interpretive Statements Electronic ventricular pacemaker Compared to ECG 06/28/2018 15:31:17 No significant changes Electronically Signed On 08-15-2018 4:44:37 CDT by Manish Irizarry Please click the below link to view image of tracing.
[2018-08-14 05:41] LABS: BAND NEUTROPHILS 1 % (2-6); EOSINOPHIL 9 % (1-4); LYMPHOCYTE 18 % (25-36); MONOCYTE 4 % (3-9); SEGMENTED NEUTROPHILS 64 % (31-76)
[2018-08-14 05:42] LABS: NUCLEATED RED BLOOD CELLS 2 % (0-0)
--- NOTE | 2018-08-14 05:53 | NUR ---
TO CT PATIENT TO CT VIA WHEELCHAIR WITH DAQUAN HUNT
--- NOTE | 2018-08-14 06:03 | NUR ---
ROOM PT BACK TO ROOM FROM CT AT THIS TIME.
--- NOTE | 2018-08-14 06:03 | NUR ---
UNASYN 3GM IV PATIENT IS TAKING UNASYN 3GM Q6 HOURS FOR ENDOCARDITIS, NEXT DOSE DUE AT 0600. PATIENT BROUGHTANTIBIOTIC FROM HOME AND INFUSION STARTED IN ED PER EDP. INFUSING UNASYN 3GM IV AT 200MLS/HR IN 20G IV IN RIGHT AC.
[2018-08-14 06:16] VITALS: BP 138/88
--- NOTE | 2018-08-14 06:17 | DIREP ---
PROCEDURE:CT ABD/PELVIS WITH CONTRAST TECHNIQUE:Following the intravenous administration of contrast material, axial cuts were obtained from the dome of the diaphragm to the ischial tuberosities. The images were viewed at lung and soft tissue settings. Sagittal and coronal reconstructions are provided. COMPARISON:[facility], CT, CT ABD/PELVIS W/ CONTRAST, 07/17/2017, 01:04 AM. INDICATIONS:Epigastric pain FINDINGS: LOWER CHEST:The lung bases are clear. Cardiomegaly with pacemaker leads in place. Previous mitral and aortic valve replacement. LIVER:Normal. BILIARY:Multiple gallstones within a distended gallbladder. PANCREAS:Normal. SPLEEN:Normal. URINARY TRACT:Normal. ADRENALS:Normal. AORTA/VASCULAR:Normal. RETROPERITONEUM:Normal. BOWEL/MESENTERY:Large amount of stool in the colon. The appendix is normal. ABDOMINAL WALL:Surgical clips right inguinal region. PELVIS:Previous hysterectomy. BONES:Normal. OTHER:Normal. CONCLUSION: 1. Multiple gallstones in a distended gallbladder. 2. Large amount of stool in the colon. Dictated by: John Persaud M.D. on 08/14/2018 at 06:13 AM
[2018-08-14 06:34] VITALS: BP 138/88
--- NOTE | 2018-08-14 06:39 | NUR ---
DR. TSANG EDP SPOKE WITH DR. TSANG ABOUT PATIENT CONDITION. DR. TSANG SAID PATIENT OKAY TO GO HOME.
[2018-08-16] MEDS ORDERED: ONDA8TAB12 PO (11:13)
== END 2018-08-14 06:50 | disposition home or self-care (01) ==
LOC: ER 04:33
DX: K80.50 Calculus of bile duct without cholangitis or cholecystitis without obstruction (principal); K82.8 Other specified diseases of gallbladder; I50.9 Heart failure, unspecified; Z79.01 Long term (current) use of anticoagulants; Z79.899 Other long term (current) drug therapy; Z90.710 Acquired absence of both cervix and uterus
CPT/HCPCS: 36415; 71046; 74177; 80053; 82150; 83690; 84484; 85025; 85610; 85730; 93005; 96374; 96375; 99285; J2405; J2550; J3010; Q9965

== ENCOUNTER 2018-08-15 11:46 | Inpatient (IN) | payer BC ==
[~2018-08-15] VITALS: Ht 162.6 cm; Wt 52.2 kg
[~2018-08-15 11:46] MED LIST changes: +WARF10TA PO
--- NOTE | 2018-08-15 12:00 | NUR ---
ARRIVED TO [facility] VIA AMBULATION. PLACED ON TELEMETRY. PICC LINE IN L SHOULDER ACCESSED.
[2018-08-15] MEDS ORDERED: SUBLIMAZE ONE (12:12)
[2018-08-15 12:30] VITALS: BP 134/80
[2018-08-15] MEDS ORDERED: KLOR-CON 10 PO PRN (12:30)
--- NOTE | 2018-08-15 12:54 | PCM.EKG ---
[facility] Test Date: 2018-08-15 Test Time: 12:55:32 Pat Name: ALICE BARRIGA Department: Room: 303 A Gender: F Snubber: BARBARA : 1965 Requested By: MEERA ROMAN Order Number: [id number] Reading MD: Meera Roman Measurements Intervals [place] Rate: 81 P: 23 MA: 176 QRS: -56 QRSD: 170 T: 113 QT: 488 QTc: 566 Interpretive Statements Electronic ventricular pacemaker Compared to ECG 08/14/2018 05:42:18 No significant changes Electronically Signed On 08-17-2018 9:42:06 CDT by Meera Roman Please click the below link to view image of tracing.
[2018-08-15] MEDS: SUBLIMAZE IV PRN ×3 (13:02→22:12)
[2018-08-15] MEDS: ZOFRAN IV PRN (13:02)
[2018-08-15 13:03] LABS: BASOPHIL % 0.5 % (0.0-0.2); EOSINOPHIL # 0.3 10^3/uL (0.0-0.2); EOSINOPHIL % 3.5 % (0.0-5.0); LYMPHOCYTES # 1.2 10^3/uL (1.0-4.8); LYMPHOCYTES % 14.6 % (24.0-44.0); MEAN CELL HGB 26.2 pg (26-34); MEAN CELL HGB CONCENTRATION 31.6 g/dL (33-37); MEAN CORP VOLUME 83.1 fL (78-100); MONOCYTES # 0.5 10^3/uL (0.3-0.8); NEUTROPHIL # 6.3 10^3/uL (1.8-7.7); NEUTROPHILS % 75.3 % (41.0-85.0); RED CELL DISTRIBUTION WIDTH 15.5 % (11.5-14.5); WHITE BLOOD CELL 8.3 10^3/uL (4.5-11.0)
[2018-08-15] MEDS ORDERED: ROCEPHIN 2,000 MG in NS 100ML 100 ML IV SCH ×2 (13:21→21:00)
[2018-08-15] MEDS: LANOXIN PO SCH (13:23)
[2018-08-15] MEDS: DEMADEX PO SCH (13:23)
[2018-08-15] MEDS: NS 1000ML/KCL 20MEQ 1,000 ML IV SCH (13:25)
[2018-08-15 14:42] LABS: DIGOXIN 0.57 ng/mL (0.90-2.00)
--- NOTE | 2018-08-15 14:48 | DIREP ---
PROCEDURE:ABDOMINAL ULTRASOUND COMPARISON:[facility], CT, CT ABD/PELVIS W/ CONTRAST, 08/14/2018, 05:52 AM. [facility], [place], [place] GALLBLADDER SCAN/COLVIN, 01/27/2018, 09:20 AM. [facility], [place], US ABDOMEN LIMITED(SINGLE ORGAN-QUAD), 01/10/2018, 08:37 AM. [facility], [place], US ABDOMEN LIMITED(SINGLE ORGAN-QUAD), 07/19/2017, 08:37 AM. [facility], CT, CT ABD/PELVIS W/ CONTRAST, 07/17/2017, 01:04 AM. [place], [place], GALLBLADDER SCAN/EJECTION FRAC, 09/11/2014, 12:57 PM. INDICATIONS:right upper quad pain FINDINGS: PANCREAS:The pancreatic tail is obscured by bowel gas shadowing. LIVER:Normal hepatic parenchymal architecture. Hepatopetal flow in the portal vein. No hepatic mass. GALLBLADDER:The gallbladder appears to be packed with shadowing stones. No gallbladder wall thickening. The gallbladder does not appear distended on this examination; however, the stones within the gallbladder lumen are attenuating so the posterior wall is estimated. Negative sonographic Coronado's sign per technologist. BILIARY:There is no biliary ductal dilatation. RIGHT KIDNEY:Normal. No hydronephrosis. LEFT KIDNEY:Normal. No hydronephrosis. SPLEEN:Normal. AORTA:The visualized portions appear unremarkable. IVC:Intrahepatic portions unremarkable. OTHER:Negative. No ascites is identified. CBD:0.3 cm GALLBLADDER WALL:0.3 cm RIGHT KIDNEY:9.9 x 5.2 x 4.6 cm LEFT KIDNEY:12.2 x 5.0 x 4.2 cm SPLEEN:11.7 x 5.7 x 9.9 cm CONCLUSION: 1. Cholelithiasis without sonographic features of cholecystitis. Dictated by: KRISTINA Physician on 08/15/2018 at 02:32 PM ac
[2018-08-15 14:56] LABS: BILIRUBIN,URINE NEGATIVE (NEGATIVE); UROBILINOGEN,URINE NORMAL (NEGATIVE)
[2018-08-15 15:02] LABS: APPEARANCE,URINE CLEAR (CLEAR); UA COLOR YELLOW (YELLOW)
[2018-08-15 15:03] LABS: YEAST,URINE FEW
[2018-08-15] MEDS: ULTRAM PO PRN ×2 (15:16→20:49)
[2018-08-15 15:45] LABS: CALCIUM 9.3 mg/dL (8.4-10.5); CARBON DIOXIDE 22.5 mmol/L (20.0-32)
[2018-08-15 16:20] VITALS: BP 122/75
[2018-08-15] MEDS ORDERED: COUMADIN PO SCH (17:00)
--- NOTE | 2018-08-15 17:15 | NUR ---
NEW ORDER RECEIVED FROM DR. TSANG HOLD [facility]IN [facility]. RBTO.
[2018-08-15] MEDS: ROCEPHIN 2,000 MG in NS 100ML 100 ML IV SCH ×2 (17:16→18:27)
[2018-08-15] MEDS: UNASYN IV SCH ×2 (18:26→23:52)
[2018-08-15] MEDS: NS IV SCH ×2 (18:26→23:52)
[2018-08-15 20:10] VITALS: BP 104/74
[2018-08-15] MEDS: ENTRESTO 24 MG-26 MG TABLET PO SCH (20:47)
[2018-08-15] MEDS: COREG PO SCH (20:47)
[2018-08-16 00:34] VITALS: BP 93/64
--- NOTE | 2018-08-16 01:13 | HPH ---
ADMIT DATE: 08/15/2018 CHIEF COMPLAINT: Nausea, vomiting, abdominal pain. HISTORY OF PRESENT ILLNESS: The patient is a 52-year-old white female who has history of valvular heart disease and subacute bacterial endocarditis with recent hospitalization for acute on chronic systolic heart failure with 20% ejection fraction with cardiomyopathy status and she came in with nausea, vomiting, was presented to the emergency room, was noted to have cholelithiasis on CT scan and had a previous gallbladder sonogram that had been unremarkable for any definite stones and she is getting Unasyn 3 grams q. 6 hours along with Rocephin 2 grams q. 12 hours for her bacterial endocarditis, following the aortic and mitral valve replacement and at the present time, she cannot keep any food down and was having recurrent nausea, vomiting this morning and felt very poorly and was admitted for IV fluid infusion and further evaluation and management. ALLERGIES: MEPERIDINE and MORPHINE. MEDICATIONS: She is on Zofran 8 mg q. 4 hours p.r.n. She is on 9 mg of Coumadin alternating with 12 mg and tramadol 50 mg 3-4 times a day, Coreg 6.25 mg twice a day, potassium 10 mEq once a day and she is also on Entresto one tablet twice a day, on antibiotics as already narrated and she is on torsemide 20 mg once a day, Protonix 40 mg once a day, Aldactone 12.5 mg once a day, Coreg 6.25 mg twice a day and potassium chloride 10 mEq 2 tablets daily. PAST MEDICAL HISTORY: She has history of bacterial endocarditis about a year ago, underwent prosthetic valve replacement and had an AV sequential pacer and had developed dilated cardiomyopathy, low EF and ejection fraction was in 20% range and she had significant pericarditis at that time. After almost 1 year, she developed generalized constitutional symptoms with fever and lethargy and positive blood cultures at this time with a different organism with Enterococcus faecalis and was sent to [facility] and she was found to have a vegetation of the mitral and aortic valve and had dual valve replacement along with Commando procedure and extraction of old pacer device and the new device was placed and she has done well and recently came with congestive heart failure and has done well and now she is coming with cholecystitis. She is post hysterectomy. SOCIAL HISTORY: Nonsmoker, no ethanol use. FAMILY HISTORY: Essentially unremarkable. PHYSICAL EXAMINATION: GENERAL: She is alert, awake, oriented. VITAL SIGNS: She weighs 52 kilograms, 162 cm and BMI 19.8 and her pulse was 86, 130/80 blood pressure, respirations 16 and 97 saturation on room air, 98 temperature. HEENT: Unremarkable. NECK: No JVD, no carotid bruits. CARDIOVASCULAR: Clicks of prosthetic valve were well heard and pericarditis rub was noted of significant intensity all over the precordium. LUNGS: Clear. ABDOMEN: Right upper quadrant tenderness. Bowel sounds present. EXTREMITIES: Distal pulses poorly felt. NEUROLOGIC: No focal neuro deficit is documented. LABORATORY DATA: Showed a normal CBC. Chemistry showed marked elevation of SGOT, SGPT, alkaline phosphatase and proBNP of 3050, bilirubin was normal. Potassium is 3.5. INR 3.7, bilirubin 0.57. Urine was ____. Sonogram showed multiple stones in the gallbladder, some distention was noted. IMPRESSION: Acute cholecystitis with cholelithiasis, recurrent nausea, vomiting, abnormal liver function tests of significant degrees, post mitral and aortic valve replacement, subacute bacterial endocarditis, on antibiotics ____ supportive care with IV fluids, Zofran. Continue antibiotics, probably requires cholecystectomy. We will talk to Dr. Starkey ____ and see if it could be arranged for her to move to [place] and have bridge anticoagulation with heparin and take her off Coumadin and stop anticoagulation with heparin 8-10 hours before the procedure and do cholecystomy and will be managed under associate professor of radiology along with the surgeon, who will operate on her. Meera Roman MD DR: SUNNY/gopal JOB# [id number]
[2018-08-16] MEDS: SUBLIMAZE IV PRN ×2 (03:46→09:17)
[2018-08-16] MEDS: NS 1000ML/KCL 20MEQ 1,000 ML IV SCH (03:52)
[2018-08-16] MEDS: ZOFRAN IV PRN (03:52)
[2018-08-16] MEDS: ROCEPHIN 2,000 MG in NS 100ML 100 ML IV SCH (04:58)
[2018-08-16 05:03] VITALS: BP 111/77
[2018-08-16 05:56] LABS: BASOPHIL # 0.1 10^3/uL (0.0-0.1); BASOPHIL % 1.2 % (0.0-0.2); EOSINOPHIL # 0.4 10^3/uL (0.0-0.2); LYMPHOCYTES # 1.4 10^3/uL (1.0-4.8); LYMPHOCYTES % 28.2 % (24.0-44.0); MEAN CELL HGB 26.2 pg (26-34); MEAN CELL HGB CONCENTRATION 31.5 g/dL (33-37); MEAN CORP VOLUME 83.1 fL (78-100); MEAN PLATELET VOLUME 11.3 fL (7.8-11.0); MONOCYTES # 0.4 10^3/uL (0.3-0.8); MONOCYTES % 8.5 % (5.0-12.0); NEUTROPHIL # 2.7 10^3/uL (1.8-7.7); NEUTROPHILS % 54.9 % (41.0-85.0); RED CELL DISTRIBUTION WIDTH 15.3 % (11.5-14.5)
[2018-08-16] MEDS: UNASYN IV SCH ×2 (05:59→12:00)
[2018-08-16] MEDS: NS IV SCH ×2 (05:59→12:00)
[2018-08-16 06:14] LABS: CALCIUM 8.3 mg/dL (8.4-10.5); CARBON DIOXIDE 25.4 mmol/L (20.0-32)
--- NOTE | 2018-08-16 06:47 | NUR ---
REPORT REPORT GIVEN TO BALA JEFFRIES.
--- NOTE | 2018-08-16 06:47 | NUR ---
REPORT REPORT RECEIVED FROM QUINTON Downs RN ASSUMED CARE OF PT
[2018-08-16] MEDS: COREG PO SCH (08:58)
[2018-08-16] MEDS: ENTRESTO 24 MG-26 MG TABLET PO SCH (08:58)
[2018-08-16 08:59] VITALS: BP 107/70
[2018-08-16] MEDS ORDERED: PROTONIX PO SCH (09:00)
[2018-08-16] MEDS ORDERED: ALDACTONE PO SCH (09:00)
[2018-08-16] MEDS ORDERED: ONDA8TAB12 PO (11:13)
[2018-08-16] MEDS: DEMADEX PO SCH (12:00)
[2018-08-16] MEDS: LANOXIN PO SCH (12:00)
[2018-08-16 12:02] VITALS: BP 118/70
[2018-08-16] MEDS: ULTRAM PO PRN (12:48)
[2018-08-16 13:10] VITALS: BP 118/70
--- NOTE | 2018-08-16 13:10 | NUR ---
D/C D/C INSTRUCTIONS GIVEN TO PT ON TRANSFER STATUS. NO S/S OF DISTRESS NOTED. OFF OF UNIT VIA W/C, BUCKLED INTO CAR. RELINQUISHED CARE OF PT
--- NOTE | 2018-08-16 14:36 | NUR ---
REPORT REPORT GIVEN TO DIMITRY FROM [place].
--- NOTE | 2018-08-16 14:59 | DSH ---
DATE OF DISCHARGE: 08/16/2018 IDENTIFICATION: A 52-year-old female. FINAL DIAGNOSES: Cholelithiasis, acute cholecystitis, liver function abnormality probably related to gallbladder disease, post-prosthetic aortic and mitral valve replacement about 5 weeks ago for subacute bacterial endocarditis with Enterococcus faecalis, redo prosthetic mitral valve surgery operated one year ago for Staph aureus bacterial endocarditis, dilated cardiomyopathy, chronic systolic heart failure with ejection fraction 20% improved following optimization of medical therapy, redo AV sequential pacer after extraction of the old device implanted one year ago due to infected valves, being transferred to [facility] under Dr. Lennox Hernández and hospitalist, Dr. Ruvalcaba by private car for cholecystectomy and bridge anticoagulation. Please refer to my history and physical to the point of my impression. HOSPITAL COURSE: The patient is a 52-year-old white female who is 5 weeks post-mitral and aortic valve replacement and COMMANDO procedure done by Dr. Figueroa in [facility] in [place] and post-surgery, she has done well and subsequently, she developed severe LV systolic dysfunction with ejection fraction down to 20% because she was taken off Entresto and she was admitted a week ago and was started on IV Dobutrex and followed by reinitiation of Entresto, carvedilol, and torsemide and Aldactone and her overall congestive heart failure is much improved. Chest x-ray has cleared up and she is feeling much better. At the present time, she came in with nausea, vomiting, abdominal pain and had biliary colic and gallbladder was full of stool and she had come to the Emergency Room. Liver enzymes went up about 3 fold and they are coming down today on 08/16/2018 and at the present time, I made arrangements for her to see Dr. Lennox Hernández and the surgeon in [facility] in [place] and Dr. Figueroa is a cardiothoracic surgeon in the [facility] at [facility] and she will go by car. She is on Unasyn 3 grams q. 6 hours and Rocephin 2 grams q. 12 hours as per Infectious Disease in the [place] and she is going to be on Zofran 8 mg q. 4 hours p.r.n., Coreg 6.25 mg twice a day, Lanoxin 0.125 mg daily, Protonix 40 mg once a day, potassium 20 mEq once a day, Entresto 24/26 one tablet twice a day, Aldactone 12.5 mg once a day, torsemide 20 mg once a day, Ultram 50 mg q. 4 hours p.r.n. and she was on Coumadin, which have been held at the present time. Last INR is 3.6. White count is normal at 5000 with 11 grams hemoglobin and INR was 3.7 on 08/15/2018, her electrolytes were normal. Potassium is 3.2. Liver enzymes showed SGOT of 224 and SGPT of 208, which came down to 74 and 97 respectively. Alkaline phosphatase came down from 365-230. Clinically, she is feeling better. She will go by private car to [facility] in [place] at this time. Meera Roman MD DR: SUNNY/gopal JOB# [id number]
[2018-08-17] MEDS ORDERED: ROCEPHIN IM SCH (16:00)
== END 2018-08-16 14:33 | disposition short-term general hospital (02) | DRG 444 ==
LOC: MS 11:46
PROVIDERS: ADMIT Specialist; ATTEND Specialist
DX: K80.00 Calculus of gallbladder with acute cholecystitis without obstruction (principal); I33.0 Acute and subacute infective endocarditis; I42.0 Dilated cardiomyopathy; I50.22 Chronic systolic (congestive) heart failure; B96.89 Other specified bacterial agents as the cause of diseases classified elsewhere; Z95.2 Presence of prosthetic heart valve; Z90.710 Acquired absence of both cervix and uterus; Z88.8 Allergy status to other drugs, medicaments and biological substances; Z88.5 Allergy status to narcotic agent
CPT/HCPCS: 36415; 76700; 80053; 80162; 81000; 83880; 85025; 85610; 87040; 87086; 93005; J0295; J0696; J2405; J3010; J7050

== ENCOUNTER → 2018-09-19 | Outpatient (CLI) | payer BC ==
[~2018-09-19] MED LIST changes: +ONDA8TAB12 PO
[2018-09-19 11:23] LABS: HEMOGLOBIN 11.5 g/dL (12.0-15.0); MEAN CELL HGB 26.1 pg (26-34); MEAN CELL HGB CONCENTRATION 31.7 g/dL (33-37); MEAN CORP VOLUME 82.3 fL (78-100); MEAN PLATELET VOLUME 11.3 fL (7.8-11.0); WHITE BLOOD CELL 5.1 10^3/uL (4.5-11.0)
[2018-09-19 11:51] LABS: CALCIUM 9.4 mg/dL (8.4-10.5); CARBON DIOXIDE 29.7 mmol/L (20.0-32); DIGOXIN 0.3 ng/mL (0.90-2.00)
== END | disposition home or self-care (01) ==
LOC: LAB 11:04
PROVIDERS: ATTEND Specialist
DX: I50.9 Heart failure, unspecified (principal)
CPT/HCPCS: 36415; 80053; 80162; 85027; 85610; 85651; 86140

== ENCOUNTER → 2019-02-24 | Outpatient (CLI) | payer BC ==
[2019-02-24 08:26] LABS: HEMOGLOBIN 13.1 g/dL (12.0-15.0); MEAN CELL HGB 29.8 pg (26-34); MEAN CELL HGB CONCENTRATION 33.9 g/dL (33-37); MEAN CORP VOLUME 88.2 fL (78-100); MEAN PLATELET VOLUME 11.1 fL (7.8-11.0); RED CELL DISTRIBUTION WIDTH 15.1 % (11.5-14.5); WHITE BLOOD CELL 5.6 10^3/uL (4.5-11.0)
[2019-02-24 08:54] LABS: CALCIUM 8.6 mg/dL (8.4-10.5); CARBON DIOXIDE 25.5 mmol/L (20.0-32)
== END | disposition home or self-care (01) ==
LOC: LAB 08:07
PROVIDERS: ATTEND Specialist
DX: I11.0 Hypertensive heart disease with heart failure (principal); I50.22 Chronic systolic (congestive) heart failure; Z79.899 Other long term (current) drug therapy
CPT/HCPCS: 36415; 80053; 80061; 82306; 83880; 84443; 85027; 85610

== ENCOUNTER → 2019-08-22 | Outpatient (CLI) | payer BC | END | disposition home or self-care (01) | LOC: LAB 12:18 | PROVIDERS: ATTEND Specialist | DX: I48.0 Paroxysmal atrial fibrillation (principal); Z95.2 Presence of prosthetic heart valve | CPT/HCPCS: 36415; 85610 ==

== ENCOUNTER → 2020-02-02 | Outpatient (CLI) | payer BC ==
[2020-02-02 09:24] LABS: MEAN CORP HGB 31.5 pg (26-34); RED CELL DISTRIBUTION WIDTH 13.3 % (11.5-14.5)
[2020-02-02 09:51] LABS: CALCIUM 8.7 mg/dL (8.4-10.5); CARBON DIOXIDE 30.7 mmol/L (20.0-32)
== END | disposition home or self-care (01) ==
LOC: LAB 09:06
PROVIDERS: ATTEND Specialist
DX: I50.9 Heart failure, unspecified (principal)
CPT/HCPCS: 36415; 80053; 80061; 82306; 83735; 84443; 85027; 85610; 86140

== ENCOUNTER → 2020-06-05 | Outpatient (CLI) | payer BC ==
[2020-06-05 10:51] LABS: MEAN CORP HGB 30.5 pg (26-34); RED CELL DISTRIBUTION WIDTH 13.1 % (11.5-14.5)
[2020-06-05 11:19] LABS: ALANINE AMINOTRANSFERASE(ML) 34 U/L (12-78); ALKALINE PHOSPHATASE 69 U/L (50-136); ASPARTATE AMINO TRANSFERASE 27 U/L (0-35); CALCIUM 8.8 mg/dL (8.4-10.5); CARBON DIOXIDE 27.2 mmol/L (20.0-32); CHOLESTEROL 233 mg/dL (120-240); GLUCOSE 86 mg/dL (70-110); HDL CHOLESTEROL 84 mg/dL (32-96)
== END | disposition home or self-care (01) ==
LOC: LAB 10:13
PROVIDERS: ATTEND Specialist
DX: I50.9 Heart failure, unspecified (principal)
CPT/HCPCS: 36415; 80053; 80061; 82306; 83880; 84443; 85027; 85610; 86140